=== PATIENT | female | born 1945 | race Two or more races ===

== ENCOUNTER 2020-02-11 07:21 | Day surgery (SDC) | payer OTHER | END 2020-02-11 11:40 | disposition home or self-care (01) | LOC: AMB-ENDOS 07:21 | PROVIDERS: ATTEND Surgery | DX: D12.0 Benign neoplasm of cecum (principal); D12.3 Benign neoplasm of transverse colon; Z20.828 Contact with and (suspected) exposure to other viral communicable diseases ==